=== PATIENT | female | born 1945 | race Caucasian/White ===

== ENCOUNTER 2016-10-12 15:11 | Emergency (ER) | payer MEDICARE, OTHER ==
[2016-03-17 08:34] VITALS: BMI 23.4
[~2016-10-12 15:11] MED LIST: BAYER CHEWABLE81 MG PO; GLUCOPHAGE1000 MG PO; K-TAB10 MEQ PO; NORVASC5 MG PO; OMEPRAZOLE20 M1 PO; ORAPRED ODT10 MG/TAB PO; PLAVIX75 MG PO; ROBAXIN500 MG PO; TIROSINT88 MCG PO; ULTRAM50 MG PO; XANAX1 MG PO; ZESTORETIC 20/21 TAB PO
[2016-10-12 16:16] LABS: APPEARANCE CLEAR (CLEAR); BILIRUBIN NEGATIVE (NEGATIVE); COLOR YELLOW (YELLOW); GLUCOSE NEGATIVE (NEGATIVE); KETONE NEGATIVE (NEGATIVE); LEUKOCYTE ESTERASE TRACE (NEGATIVE); NITRITE NEGATIVE (NEGATIVE); PROTEIN NEGATIVE (NEGATIVE); UROBILINOGEN NORMAL (NORMAL)
[2016-10-12 16:17] LABS: BACTERIA FEW /hpf (NONE SEEN); EPITHELIAL CELLS 0-5 /hpf (0-5); RED CELLS - URINE OCC /hpf (0-5); WHITE CELLS - URINE 0-5 /hpf (0-5)
[2016-10-12 20:30] LABS: BASOPHILS 0.4 % (0-2); EOSINOPHILS 0.4 % (0-7); HEMATOCRIT 39.1 % (36.0-48.0); IMMATURE GRANULOCYTES 0.2 % (0-5); LYMPHOCYTES 29.6 % (15-50); MCH 30.5 pg (26.0-34.0); MCHC 33.2 g/dL (31.0-37.0); MCV 91.8 fL (80.0-100.0); MEAN PLATELET VOLUME 11.9 fL (7.4-10.4); MONOCYTES 8.3 % (2-11); NEUTROPHILS 61.1 % (40-80); PLATELET COUNT 229 10x3/uL (130-400); RBC 4.26 10x6/uL (4.00-5.40); RDW 12.8 % (11.5-14.5); WBC 8.4 10x3/uL (4.8-10.8)
[2016-10-12 20:46] LABS: ALBUMIN 4.1 g/dL (3.4-5.0); BILIRUBIN - TOTAL 0.29 mg/dL (0.2-1.3); CALCIUM 9.9 mg/dL (8.5-10.1); CARBON DIOXIDE 29.7 mmol/L (21.0-32.0); CREATININE - SERUM 0.8 mg/dL (0.6-1.3); POTASSIUM - SERUM 3.7 mmol/L (3.5-5.1); PROTEIN - SERUM 7.3 g/dL (6.4-8.2)
== END 2016-10-12 22:10 | disposition home or self-care (01) ==
LOC: D.ER 15:11
PROVIDERS: Emergency Medicine Emergency Medical Services; Physician Assistant
DX: R30.0 Dysuria (principal); I10 Essential (primary) hypertension; R05 Cough; E11.9 Type 2 diabetes mellitus without complications

== ENCOUNTER 2017-10-23 13:13 | Emergency (ER) | payer MEDICARE, OTHER ==
[2016-03-17 08:34] VITALS: BMI 23.4
== END 2017-10-23 13:57 | disposition home or self-care (01) ==
LOC: D.ER 13:13
DX: J02.9 Acute pharyngitis, unspecified (principal); I10 Essential (primary) hypertension; E11.9 Type 2 diabetes mellitus without complications

== ENCOUNTER 2019-08-13 12:27 | Emergency (ER) | payer MEDICARE, OTHER ==
[~2019-08-13] VITALS: Ht 152.4 cm; Wt 63.6 kg
[2019-08-13 12:37] VITALS: Ht 152.4 cm; Wt 63.6 kg
[2019-08-13 13:17] LABS: BASOPHILS 0.6 % (0-2); EOSINOPHILS 1.7 % (0-7); HEMATOCRIT 41.2 % (36.0-48.0); HEMOGLOBIN 13.4 g/dL (12-16); IMMATURE GRANULOCYTES 0.3 % (0-5); LYMPHOCYTES 27.1 % (15-50); MCH 30.5 pg (26.0-34.0); MCHC 32.5 g/dL (31.0-37.0); MCV 93.8 fL (80.0-100.0); MONOCYTES 7.3 % (2-11); PLATELET COUNT 185 10x3/uL (130-400); RBC 4.39 10x6/uL (4.00-5.40); RDW 12.5 % (11.5-14.5)
[2019-08-13 13:24] LABS: ANION GAP 13.8 mmol/L (8-16); CALCIUM 9.5 mg/dL (8.5-10.1); CARBON DIOXIDE 27.9 mmol/L (21.0-32.0); POTASSIUM - SERUM 3.7 mmol/L (3.5-5.1)
[2019-08-13 13:30] LABS: ALBUMIN 4.2 g/dL (3.4-5.0); BILIRUBIN - TOTAL 0.57 mg/dL (0.2-1.3); PROTEIN - SERUM 7.7 g/dL (6.4-8.2)
[2019-08-13] MEDS ORDERED: ZPAK PO (14:09)
[2019-08-13] MEDS ORDERED: MEDROL DOSE PACK4 MG PO (14:09)
[2019-08-13] MEDS ORDERED: TESSALON PERLE100 MG PO (14:09)
[2019-08-13 14:15] VITALS: BP 132/68
== END 2019-08-13 14:17 | disposition home or self-care (01) ==
LOC: D.ER 12:27
PROVIDERS: Emergency Medicine
DX: J06.9 Acute upper respiratory infection, unspecified (principal); J40 Bronchitis, not specified as acute or chronic; E11.9 Type 2 diabetes mellitus without complications; Z79.84 Long term (current) use of oral hypoglycemic drugs; I10 Essential (primary) hypertension; I25.2 Old myocardial infarction; Z95.5 Presence of coronary angioplasty implant and graft

== ENCOUNTER 2019-10-23 17:15 | Emergency (ER) | payer MEDICARE, OTHER ==
[~2019-10-23] VITALS: Ht 152.4 cm; Wt 63.6 kg
[~2019-10-23 17:15] MED LIST changes: +MEDROL DOSE PACK4 MG PO; +TESSALON PERLE100 MG PO; +ZPAK PO
[2019-10-23 17:24] VITALS: Ht 152.4 cm; Wt 63.6 kg
[2019-10-23 17:58] LABS: BASOPHILS 0.6 % (0-2); EOSINOPHILS 1.7 % (0-7); HEMATOCRIT 41.8 % (36.0-48.0); HEMOGLOBIN 13.6 g/dL (12-16); IMMATURE GRANULOCYTES 0.2 % (0-5); LYMPHOCYTES 35.2 % (15-50); MCH 29.7 pg (26.0-34.0); MCHC 32.5 g/dL (31.0-37.0); MCV 91.3 fL (80.0-100.0); MEAN PLATELET VOLUME 12.2 fL (7.4-10.4); MONOCYTES 7.8 % (2-11); NEUTROPHILS 54.5 % (40-80); PLATELET COUNT 211 10x3/uL (130-400); RBC 4.58 10x6/uL (4.00-5.40); RDW 12.7 % (11.5-14.5); WBC 6.5 10x3/uL (4.8-10.8)
[2019-10-23 18:12] LABS: CALC OSMOLALITY 283 mosm/kg (275-300); CALCIUM 9.6 mg/dL (8.5-10.1); CARBON DIOXIDE 27.5 mmol/L (21.0-32.0); CHLORIDE - SERUM 102 mmol/L (98-107); CREATININE - SERUM 1.3 mg/dL (0.6-1.3); GLUCOSE 82 mg/dL (74-106); POTASSIUM - SERUM 3.8 mmol/L (3.5-5.1); SODIUM 142 mmol/L (136-145); UREA NITROGEN 17 mg/dL (7-18); eGFR NON AFRICAN AMERICAN 42 mL/min (90-120)
[2019-10-23 18:13] LABS: APTT 25.2 SECONDS (22.8-39.4); INR 0.89 (0.85-1.17); PROTIME 12.1 SECONDS (11.6-15.0)
[2019-10-23 18:28] LABS: ALBUMIN 4.4 g/dL (3.4-5.0); ALKALINE PHOSPHATASE 63 U/L (30-120); ALT (SGPT) 21 U/L (10-68); BILIRUBIN - TOTAL 0.54 mg/dL (0.2-1.3); CKMB 1.2 U/L (0.0-3.6); CREATINE KINASE 75 UL (21-215); PRO BNP 308 pg/mL (0-450)
[2019-10-23 18:37] VITALS: BP 177/77
[2019-10-23] MEDS ORDERED: MEDROL DOSE PACK4 MG PO (18:44)
[2019-10-23] MEDS ORDERED: ZYRTEC10 MG PO (18:44)
[2019-10-23] MEDS ORDERED: TESSALON PERLE100 MG PO (18:44)
[2019-10-23 18:57] LABS: TROPONIN-I < 0.017 ng/mL (0.000-0.060)
== END 2019-10-23 18:59 | disposition home or self-care (01) ==
LOC: D.ER 17:15
PROVIDERS: Family Medicine
DX: R05 Cough (principal); J40 Bronchitis, not specified as acute or chronic; J30.2 Other seasonal allergic rhinitis; E11.9 Type 2 diabetes mellitus without complications; I10 Essential (primary) hypertension; I25.2 Old myocardial infarction; E07.9 Disorder of thyroid, unspecified; Z79.84 Long term (current) use of oral hypoglycemic drugs

== ENCOUNTER 2019-11-29 13:10 | Emergency (ER) | payer MEDICARE, OTHER ==
[~2019-11-29] VITALS: Ht 152.4 cm; Wt 63.6 kg
[~2019-11-29 13:10] MED LIST changes: +ZYRTEC10 MG PO
[2019-11-29 13:32] VITALS: BP 133/76; Ht 152.4 cm; Wt 63.6 kg
[2019-11-29] MEDS ORDERED: ACETAMINOPHEN500 M1 PO (15:00)
== END 2019-11-29 15:29 | disposition home or self-care (01) ==
LOC: D.ER 13:10
DX: M25.561 Pain in right knee (principal); M25.571 Pain in right ankle and joints of right foot; M79.18 Myalgia, other site; W19.XXXA Unspecified fall, initial encounter; Y93.9 Activity, unspecified; Y92.9 Unspecified place or not applicable; E11.9 Type 2 diabetes mellitus without complications; I10 Essential (primary) hypertension; I25.2 Old myocardial infarction; Z79.84 Long term (current) use of oral hypoglycemic drugs

== ENCOUNTER 2020-01-14 13:22 | Emergency (ER) | payer MEDICARE, OTHER ==
[~2020-01-14] VITALS: Ht 152.4 cm; Wt 63.6 kg
[~2020-01-14 13:22] MED LIST changes: +ACETAMINOPHEN500 M1 PO
[2020-01-14 13:32] VITALS: Ht 152.4 cm; Wt 63.6 kg
[2020-01-14 14:29] LABS: BASOPHILS 0.4 % (0-2); EOSINOPHILS 0.8 % (0-7); HEMATOCRIT 40.1 % (36.0-48.0); HEMOGLOBIN 12.7 g/dL (12-16); IMMATURE GRANULOCYTES 0.2 % (0-5); LYMPHOCYTES 14.8 % (15-50); MCH 29.5 pg (26.0-34.0); MCHC 31.7 g/dL (31.0-37.0); MEAN PLATELET VOLUME 12.9 fL (7.4-10.4); MONOCYTES 6.1 % (2-11); NEUTROPHILS 77.7 % (40-80); PLATELET COUNT 186 10x3/uL (130-400); RBC 4.31 10x6/uL (4.00-5.40); RDW 13.1 % (11.5-14.5); WBC 9.5 10x3/uL (4.8-10.8)
[2020-01-14 14:34] LABS: ANION GAP 9.9 mmol/L (8-16); CALCIUM 9.1 mg/dL (8.5-10.1); CARBON DIOXIDE 30.6 mmol/L (21.0-32.0); CREATININE - SERUM 1.1 mg/dL (0.6-1.3); POTASSIUM - SERUM 3.5 mmol/L (3.5-5.1)
[2020-01-14 14:41] LABS: ALBUMIN 3.9 g/dL (3.4-5.0); BILIRUBIN - TOTAL 0.55 mg/dL (0.2-1.3); PROTEIN - SERUM 7.3 g/dL (6.4-8.2)
[2020-01-14 15:01] LABS: APTT 26.5 SECONDS (22.8-39.4); INR 0.99 (0.85-1.17); PROTIME 13.1 SECONDS (11.6-15.0)
[2020-01-14 15:13] LABS: BILIRUBIN NEGATIVE (NEGATIVE); GLUCOSE NEGATIVE (NEGATIVE); KETONE NEGATIVE (NEGATIVE); NITRITE NEGATIVE (NEGATIVE); UROBILINOGEN NORMAL (NORMAL)
[2020-01-14 15:14] LABS: EPITHELIAL CELLS 0-5 /hpf (0-5); RED CELLS - URINE >50 /hpf (0-5); WHITE CELLS - URINE 0-5 /hpf (NEGATIVE)
[2020-01-14] MEDS ORDERED: CHRONULAC30 ML PO (20:37)
[2020-01-14 20:46] VITALS: BP 118/76
== END 2020-01-14 20:46 | disposition home or self-care (01) ==
LOC: D.ER 13:22
PROVIDERS: Family Medicine
DX: K59.00 Constipation, unspecified (principal); R31.9 Hematuria, unspecified; R30.0 Dysuria; N20.0 Calculus of kidney; E11.9 Type 2 diabetes mellitus without complications; I10 Essential (primary) hypertension; I25.2 Old myocardial infarction; Z79.84 Long term (current) use of oral hypoglycemic drugs